=== PATIENT | male | born 1970 | race Two or more races ===

== ENCOUNTER 2020-07-28 22:50 | Inpatient (IN) | payer OTHER ==
[~2020-07-28] VITALS: Ht 167.6 cm; Wt 76.7 kg
[2020-07-28 23:00] VITALS: BP 110/52
--- NOTE | 2020-07-28 23:04 | Emergency Room Report ---
History of Present Illness General Chief Complaint: Chest Pain Source: Patient Present Illness HPI Is a 50-year-old male with a history of A. fib and sick sinus syndrome. He is currently taking atenolol and has a pacemaker. He presents with complaint of palpitation and chest pain. Onset was acute and occurred around 8:00 PM. Patient said that his heart rate was beating fast and hard. He also developed some chest pressure and pain. Pain radiates to the neck and back of the head. No shortness of breath. No nausea no vomiting. Pain is 7 out of 10. Nothing made it better. Nothing made it worse. He said that his A. fib is usually well controlled. He took his aspirin today and EMS gave him aspirin also. 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 Patient History Past Medical History: see triage record, old chart reviewed, DM, AFib Past Surgical History: pacemaker Pertinent Family History: none Social History: Denies: smoking Immunizations: other Reviewed Nursing Documentation: PMH: Agreed; PSxH: Agreed Nursing Documentation-PMH Hx Cardiac Problems: Yes - afib Hx Hypertension: Yes Hx Pacemaker: Yes Hx Diabetes: Yes Review of Systems Eye: Denies: eye pain, blurred vision ENT: Denies: ear pain, nose congestion, throat swelling Respiratory: Denies: cough, shortness of breath Cardiovascular: Reports: chest pain, palpitations Gastrointestinal: Denies: abdominal pain, diarrhea, nausea, vomiting Musculoskeletal: Denies: back pain, joint pain Skin: Denies: rash Neurological: Denies: headache, numbness Endocrine: Denies: increased thirst, increased urine Hematologic/Lymphatic: Denies: easy bruising All Other Systems: negative except mentioned in HPI Physical Exam Vital Signs Date Time Temp Pulse Resp B/P (MAP) Pulse Ox O2 Delivery O2 Flow Rate FiO2 07/28/20 22:50 98.4 175 20 110/52 (71) 98 Room Air Vitals with tachycardia Sp02 EP Interpretation: reviewed, normal General Appearance: well appearing, no apparent distress, alert Head: normocephalic, atraumatic Eyes: bilateral eye PERRL, bilateral eye EOMI ENT: hearing grossly normal, normal pharynx Neck: full range of motion, supple, no meningismus Respiratory: chest non-tender, lungs clear, normal breath sounds Cardiovascular #1: no murmur, tachycardia, irregularly irregular Gastrointestinal: normal bowel sounds, non tender, no mass, no organomegaly, no bruit, non-distended Musculoskeletal: back normal, normal range of motion, gait/station normal Psychiatric: mood/affect normal Procedures Critical Care Time Critical Care Time Critical care is mandated in this patient who presented with rapid A. fib with very fast ventricular rate. Patient require my urgent intervention to attenuate the risks of metabolic collapse which may lead to cardiovascular collapse and . Critical care time is 35 minutes excluding any reportable procedure. Critical care time included evaluation, multiple reevaluation, looking at old charts, interpreting laboratory and diagnostic data, discussing case with patient and family and consultants, and charting. Medical Decision Making Diagnostic Impression: Primary Impression: Rapid atrial fibrillation Additional Impression: Chest pain Qualified Codes: R07.9 - Chest pain, unspecified ER Course Presents with rapid atrial fibrillation. Rate is controlled but still in A. fib. Troponin is intermediate. I contacted Dr. Miranda for admission. EKG Diagnostic Results Troponin ordered: Yes Rate: tachycardiac Rhythm: other - afib with rvr ST Segments: other - NSST changes Other Impression Repeat EKG: afib with rate 89; occasional ventricular paced complexes. ASA given to the pt in ED: No Chest X-Ray Diagnostic Results Chest X-Ray Diagnostic Results : Chest X-Ray Ordered: Yes # of Views/Limited/Complete: 1 View Indication: Chest Pain EP Interpretation: Yes Interpretation: no consolidation, no effusion, no pneumothorax, no acute cardiopulmonary disease, other - pacemaker Impression: No acute disease Electronically Signed by: Guilherme Kim MD Last Vital Signs Date Time Temp Pulse Resp B/P (MAP) Pulse Ox O2 Delivery O2 Flow Rate FiO2 07/28/20 22:50 98.4 175 20 110/52 (71) 98 Room Air Status: improved Disposition: ADMITTED INPATIENT Condition: Serious Guilherme Kim MD Jul 28, 2020 23:04
[2020-07-28] MEDS: Aspirin Baby 81mg ORAL ONE ×2 (23:08→23:18)
[2020-07-28] MEDS ORDERED: dilTIAZem HCl 25mg/5ml Inj IVP ONE (23:15)
[2020-07-28 23:16] LABS: EOSINOPHILS % (AUTO) 1.5 % (0.0-3.0); HEMATOCRIT 51.6 % (42.0-52.0); HEMOGLOBIN 17.3 G/DL (14.2-18.0); LYMPHOCYTES % (AUTO) 35.7 % (20.0-45.0); MEAN CORPUSCULAR VOLUME 86 FL (80-99); MONOCYTES % (AUTO) 8.5 % (1.0-10.0); NEUTROPHILS % (AUTO) 53.2 % (45.0-75.0); PLATELET COUNT 246 K/UL (150-450); RED BLOOD COUNT 5.99 M/UL (4.70-6.10); RED CELL DISTRIBUTION WIDTH 12.8 % (11.6-14.8); WHITE BLOOD COUNT 9.6 K/UL (4.8-10.8)
[2020-07-28 23:17] LABS: APPEARANCE,URINE CLEAR; BILIRUBIN, URINE NEGATIVE (NEGATIVE); COLOR,URINE PALE YELLOW; GLUCOSE, URINE (UA) 1+ (NEGATIVE); KETONES,URINE NEGATIVE (NEGATIVE); LEUKOCYTE ESTERASE ,URINE NEGATIVE (NEGATIVE); NITRITE,URINE NEGATIVE (NEGATIVE); PH,URINE 7 (4.5-8.0); PROTEIN,URINE 3+ (NEGATIVE); UROBILINOGEN,URINE NORMAL MG/DL (0.0-1.0)
[2020-07-28 23:28] LABS: CALCIUM 9.2 MG/DL (8.5-10.1); CREATININE 1.3 MG/DL (0.55-1.30); POTASSIUM 3.8 MMOL/L (3.5-5.1)
[2020-07-28 23:35] LABS: ALBUMIN 4.2 G/DL (3.4-5.0); ALBUMIN/GLOBULIN RATIO 0.9 (1.0-2.7); BILIRUBIN,TOTAL 0.3 MG/DL (0.2-1.0)
[2020-07-28 23:47] VITALS: BP 122/90
[2020-07-29] VITALS (7 sets, daily range): BP systolic 107–143; BP diastolic 53–97
[2020-07-29] MEDS ORDERED: METFORMIN HCL500 M1 ORAL (00:53)
[2020-07-29] MEDS ORDERED: ATENOLOL25 MG ORAL (00:53)
[2020-07-29] MEDS ORDERED: ADVAIR 250-501 EACH INH (01:40)
[2020-07-29] MEDS ORDERED: ASPIRIN81 MG ORAL (01:40)
[2020-07-29 05:29] LABS: BASOPHILS % (AUTO) 0.7 % (0.0-2.0); EOSINOPHILS % (AUTO) 1.2 % (0.0-3.0); HEMATOCRIT 55.6 % (42.0-52.0); HEMOGLOBIN 17.9 G/DL (14.2-18.0); LYMPHOCYTES % (AUTO) 25.5 % (20.0-45.0); MEAN CORPUSCULAR VOLUME 89 FL (80-99); MONOCYTES % (AUTO) 6.4 % (1.0-10.0); NEUTROPHILS % (AUTO) 66.2 % (45.0-75.0); PLATELET COUNT 256 K/UL (150-450); RED BLOOD COUNT 6.22 M/UL (4.70-6.10); RED CELL DISTRIBUTION WIDTH 13.1 % (11.6-14.8); WHITE BLOOD COUNT 9.6 K/UL (4.8-10.8)
[2020-07-29] MEDS: metFORMIN 500mg tab ORAL SCH ×2 (05:50→12:21)
[2020-07-29 06:08] LABS: ANION GAP 8 mmol/L (5-15); BLOOD UREA NITROGEN 16 mg/dL (7-18); CALCIUM 9.3 MG/DL (8.5-10.1); CARBON DIOXIDE 30 MMOL/L (21-32); CHLORIDE 102 MMOL/L (98-107); CREATININE 1.1 MG/DL (0.55-1.30); POTASSIUM 3.8 MMOL/L (3.5-5.1); SODIUM 140 MMOL/L (136-145)
[2020-07-29] MEDS ORDERED: Atenolol 25mg tab ORAL SCH (09:00)
[2020-07-29] MEDS ORDERED: Aspirin Baby 81mg ORAL SCH (09:00)
--- NOTE | 2020-07-29 09:20 | History and Physical ---
Christiansen Dorene BUSINESS PERFORMANCE SPECIALIST 07/29/20 0919: History of Present Illness General Date patient seen: Jul 29, 2020 Time patient seen: 08:00 Reason for Hospitalization: Chest Pain, A fib with RVR Present Illness HPI 50 years old male with PMH of HTN , paroxysmal A fib, SSS, s/p PPM , asthma, prediabetes ( on metformin), presented to ED with c/o palpitations and chest pain. Onset was acute . Patient reported fast and hard heart beating. He also developed chest pressure associated pain, which radiated to his neck and back of his head. Pain reported at 7 out of 10 No associated shortness of breath. No nausea and vomiting. Per patient, his A fib is well controlled . In the past he apparently had an ablation /"shock" , as per patient. He is not on any a/coagulation, but is taking ASA and beta chantel. Patient also had pacemaker inserted in 2014 . He f/up as OP at [facility], last interrogation few weeks ago, and was normal according to the patient. He took aspirin earlier and also received aspirin by paramedics . Upon evaluation heart rate was 175 , blood pressure was stable. Pulse oximetry was stable on room air. ECC m revealed atrial fibrillation with RVR Chest x-ray revealed evidence of pacemaker , no acute cardiopulmonary pathology. Laboratory work-up revealed stable hemoglobin and hematocrit. No leukocytosis. Stable electrolytes and renal parameters. Glucose 193 Troponin 0.046 Urinalysis revealed +3 protein , no evidence of urinary tract infection. In emergency department patient received Cardizem bolus , heart rate stabilized , and patient subsequently was transferred to telemetry floor for further management Allergies: Coded Allergies: No Known Allergies (Unverified , 07/28/20) COVID-19 Screening Contact w/high risk pt: No Experienced COVID-19 symptoms?: No Medication History Scheduled Atenolol* (Tenormin*), 25 MG ORAL DAILY, (Reported) Fluticasone/Salmeterol (Advair 250-50 Diskus), 1 PUFF INH EVERY 12 HOURS, (Reported) Metformin Hcl* (Metformin Hcl*), 500 MG ORAL TWICE A DAY, (Reported) Scheduled PRN Aspirin* (Aspirin*), 81 MG ORAL DAILY PRN for CVA PPX, (Reported) Patient History Healthcare decision maker Resuscitation status Full code Advanced Directive on File Review of Systems Constitutional: Reports: no symptoms Eye: Reports: no symptoms ENT: Reports: no symptoms Respiratory: Reports: other - hx of asthma, well controlled with Advair and Albuterol prn Cardiovascular: Reports: see HPI Gastrointestinal: Reports: no symptoms Genitourinary: Reports: no symptoms Musculoskeletal: Reports: no symptoms Skin: Reports: no symptoms Psychiatric: Reports: no symptoms Neurological: Reports: no symptoms Endocrine: Reports: no symptoms Hematologic/Lymphatic: Reports: no symptoms Physical Exam General Appearance: WD/WN, no apparent distress, alert Lines, tubes and drains: peripheral HEENT: normocephalic, atraumatic, anicteric, mucous membranes moist Neck: non-tender, supple Respiratory/Chest: chest wall non-tender, lungs clear, no respiratory distress, no accessory muscle use Cardiovascular/Chest: normal peripheral pulses, normal rate - SR, occasional low ST Abdomen: normal bowel sounds, non tender, soft Extremities: normal range of motion, no calf tenderness, normal capillary refill Skin Exam: warm/dry 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, no motor/sensory deficits, alert, oriented x 3 Musculoskeletal: normal muscle bulk Last 24 Hour Vital Signs Date Time Temp Pulse Resp B/P (MAP) Pulse Ox O2 Delivery O2 Flow Rate FiO2 07/29/20 08:47 90 140/74 07/29/20 04:00 99 07/29/20 04:00 97.0 94 18 107/53 (71) 98 07/29/20 02:00 97 07/29/20 01:52 Room Air 07/29/20 01:15 97.5 108 18 138/93 (108) 100 07/29/20 00:57 78 16 125/67 100 Room Air 07/29/20 00:57 86 16 123/67 100 Room Air 07/28/20 23:47 98.4 79 17 122/90 98 Room Air 07/28/20 23:08 87 140/114 07/28/20 23:00 98.4 175 20 110/52 98 Room Air 07/28/20 23:00 175 20 Room Air 07/28/20 22:50 98.4 175 20 110/52 (71) 98 Room Air Intake and Output 07/28/20 07/29/20 19:00 07:00 Intake Total 240 ml Balance 240 ml Intake Oral 240 ml # Voids 2 Laboratory Tests Test 07/28/20 23:00 07/29/20 04:47 White Blood Count 9.6 K/UL (4.8-10.8) 9.6 K/UL (4.8-10.8) Red Blood Count 5.99 M/UL (4.70-6.10) 6.22 M/UL (4.70-6.10) H Hemoglobin 17.3 G/DL (14.2-18.0) 17.9 G/DL (14.2-18.0) Hematocrit 51.6 % (42.0-52.0) 55.6 % (42.0-52.0) H Mean Corpuscular Volume 86 FL (80-99) 89 FL (80-99) Mean Corpuscular Hemoglobin 28.9 PG (27.0-31.0) 28.8 PG (27.0-31.0) Mean Corpuscular Hemoglobin Concent 33.6 G/DL (32.0-36.0) 32.3 G/DL (32.0-36.0) Red Cell Distribution Width 12.8 % (11.6-14.8) 13.1 % (11.6-14.8) Platelet Count 246 K/UL (150-450) 256 K/UL (150-450) Mean Platelet Volume 7.2 FL (6.5-10.1) 6.8 FL (6.5-10.1) Neutrophils (%) (Auto) 53.2 % (45.0-75.0) 66.2 % (45.0-75.0) Lymphocytes (%) (Auto) 35.7 % (20.0-45.0) 25.5 % (20.0-45.0) Monocytes (%) (Auto) 8.5 % (1.0-10.0) 6.4 % (1.0-10.0) Eosinophils (%) (Auto) 1.5 % (0.0-3.0) 1.2 % (0.0-3.0) Basophils (%) (Auto) 1.0 % (0.0-2.0) 0.7 % (0.0-2.0) Urine Color Pale yellow Urine Appearance Clear Urine pH 7 (4.5-8.0) Urine Specific [place] 1.005 (1.005-1.035) Urine Protein 3+ (NEGATIVE) H Urine Glucose (UA) 1+ (NEGATIVE) H Urine Ketones Negative (NEGATIVE) Urine Blood 1+ (NEGATIVE) H Urine Nitrite Negative (NEGATIVE) Urine Bilirubin Negative (NEGATIVE) Urine Urobilinogen Normal MG/DL (0.0-1.0) Urine Leukocyte Esterase Negative (NEGATIVE) Urine RBC 0-2 /HPF (0 - 0) H Urine WBC 0 /HPF (0 - 0) Urine Squamous Epithelial Cells None /LPF (NONE/OCC) Urine Bacteria None /HPF (NONE) Sodium Level 138 MMOL/L (136-145) 140 MMOL/L (136-145) Potassium Level 3.8 MMOL/L (3.5-5.1) 3.8 MMOL/L (3.5-5.1) Chloride Level 100 MMOL/L (98-107) 102 MMOL/L (98-107) Carbon Dioxide Level 30 MMOL/L (21-32) 30 MMOL/L (21-32) Anion Gap 8 mmol/L (5-15) 8 mmol/L (5-15) Blood Urea Nitrogen 16 mg/dL (7-18) 16 mg/dL (7-18) Creatinine 1.3 MG/DL (0.55-1.30) 1.1 MG/DL (0.55-1.30) Estimat Glomerular Filtration Rate 58.2 mL/min (>60) > 60 mL/min (>60) Glucose Level 193 MG/DL (74-106) H 135 MG/DL (74-106) H Calcium Level 9.2 MG/DL (8.5-10.1) 9.3 MG/DL (8.5-10.1) Total Bilirubin 0.3 MG/DL (0.2-1.0) Aspartate Amino Transf (AST/SGOT) 16 U/L (15-37) Alanine Aminotransferase (ALT/SGPT) 42 U/L (12-78) Alkaline Phosphatase 92 U/L (46-116) Troponin I 0.046 ng/mL (0.000-0.056) Total Protein 8.7 G/DL (6.4-8.2) H Albumin 4.2 G/DL (3.4-5.0) Globulin 4.5 g/dL Albumin/Globulin Ratio 0.9 (1.0-2.7) L Thyroid Stimulating Hormone (TSH) 1.716 uiU/mL (0.358-3.740) Height (Feet): 5 Height (Inches): 6.00 Weight (Pounds): 169 Medications Current Medications Medications (Trade) Dose Ordered Sig/Noemy Route PRN Reason Start Time Stop Time Status Last Admin Dose Admin Acetaminophen (Tylenol) 650 mg Q6H PRN ORAL Mild Pain (Pain Scale 1-3) 07/29/20 01:30 08/28/20 01:29 Aspirin (ASA) 81 mg DAILY ORAL 07/29/20 09:00 09/12/20 08:59 07/29/20 08:47 Atenolol (Tenormin) 25 mg DAILY ORAL 07/29/20 09:00 08/28/20 08:59 07/29/20 08:47 Metformin HCl (Glucophage) 500 mg BIDBL ORAL 07/29/20 06:30 08/28/20 06:29 07/29/20 05:50 Ondansetron HCl (Zofran) 4 mg Q6H PRN IVP Nausea & Vomiting 07/29/20 01:30 08/28/20 01:29 Salmeterol Xinafoate/ Fluticasone (Advair 250/50 Diskus) 1 puffs BID INH 07/29/20 09:00 10/27/20 08:59 Assessment/Plan Assessment/Plan: ASSESSMENT A fib with RVR PAF Chest pain, likely due to A fib with RVR SSS, s/p PPM HTN Pre- DM ? diabetes Asthma PLAN OF CARE tele repeat troponin continue BB and ASA ECG ECHO cardio eval consider a/c given hx of DM BP management with current regimen/ BB BS management, continue Metformin, check HgA1c O2 prn keep sat > 90% continue Advair O2 prn keep sat > 90, remains stable on RA, case discussed and evaluated by supervising physician Hunter Miranda MD 07/29/20 1253: History of Present Illness General Reason for Hospitalization: Chest Pain, A fib with RVR Present Illness Allergies: Coded Allergies: No Known Allergies (Unverified , 07/28/20) Medication History Scheduled Atenolol* (Tenormin*), 25 MG ORAL DAILY, (Reported) Fluticasone/Salmeterol (Advair 250-50 Diskus), 1 PUFF INH EVERY 12 HOURS, (Reported) Metformin Hcl* (Metformin Hcl*), 500 MG ORAL TWICE A DAY, (Reported) Scheduled PRN Aspirin* (Aspirin*), 81 MG ORAL DAILY PRN for CVA PPX, (Reported) Dorene Christiansen NP Jul 29, 2020 09:19 Hunter Miranda MD Jul 29, 2020 12:53
--- NOTE | 2020-07-29 10:35 | Cardiac Electrophysiology PN ---
Subjective Subjective [id number] Objective Last 24 Hour Vital Signs Date Time Temp Pulse Resp B/P (MAP) Pulse Ox O2 Delivery O2 Flow Rate FiO2 07/29/20 09:00 Room Air 07/29/20 08:47 90 140/74 07/29/20 08:00 97.6 90 20 140/74 (96) 100 07/29/20 08:00 103 07/29/20 04:00 99 07/29/20 04:00 97.0 94 18 107/53 (71) 98 07/29/20 02:00 97 07/29/20 01:52 Room Air 07/29/20 01:15 97.5 108 18 138/93 (108) 100 07/29/20 00:57 78 16 125/67 100 Room Air 07/29/20 00:57 86 16 123/67 100 Room Air 07/28/20 23:47 98.4 79 17 122/90 98 Room Air 07/28/20 23:08 87 140/114 07/28/20 23:00 98.4 175 20 110/52 98 Room Air 07/28/20 23:00 175 20 Room Air 07/28/20 22:50 98.4 175 20 110/52 (71) 98 Room Air Intake and Output 07/28/20 07/29/20 19:00 07:00 Intake Total 240 ml Balance 240 ml Intake Oral 240 ml # Voids 2 Laboratory Tests Test 07/28/20 23:00 07/29/20 04:47 White Blood Count 9.6 K/UL (4.8-10.8) 9.6 K/UL (4.8-10.8) Red Blood Count 5.99 M/UL (4.70-6.10) 6.22 M/UL (4.70-6.10) H Hemoglobin 17.3 G/DL (14.2-18.0) 17.9 G/DL (14.2-18.0) Hematocrit 51.6 % (42.0-52.0) 55.6 % (42.0-52.0) H Mean Corpuscular Volume 86 FL (80-99) 89 FL (80-99) Mean Corpuscular Hemoglobin 28.9 PG (27.0-31.0) 28.8 PG (27.0-31.0) Mean Corpuscular Hemoglobin Concent 33.6 G/DL (32.0-36.0) 32.3 G/DL (32.0-36.0) Red Cell Distribution Width 12.8 % (11.6-14.8) 13.1 % (11.6-14.8) Platelet Count 246 K/UL (150-450) 256 K/UL (150-450) Mean Platelet Volume 7.2 FL (6.5-10.1) 6.8 FL (6.5-10.1) Neutrophils (%) (Auto) 53.2 % (45.0-75.0) 66.2 % (45.0-75.0) Lymphocytes (%) (Auto) 35.7 % (20.0-45.0) 25.5 % (20.0-45.0) Monocytes (%) (Auto) 8.5 % (1.0-10.0) 6.4 % (1.0-10.0) Eosinophils (%) (Auto) 1.5 % (0.0-3.0) 1.2 % (0.0-3.0) Basophils (%) (Auto) 1.0 % (0.0-2.0) 0.7 % (0.0-2.0) Urine Color Pale yellow Urine Appearance Clear Urine pH 7 (4.5-8.0) Urine Specific [place] 1.005 (1.005-1.035) Urine Protein 3+ (NEGATIVE) H Urine Glucose (UA) 1+ (NEGATIVE) H Urine Ketones Negative (NEGATIVE) Urine Blood 1+ (NEGATIVE) H Urine Nitrite Negative (NEGATIVE) Urine Bilirubin Negative (NEGATIVE) Urine Urobilinogen Normal MG/DL (0.0-1.0) Urine Leukocyte Esterase Negative (NEGATIVE) Urine RBC 0-2 /HPF (0 - 0) H Urine WBC 0 /HPF (0 - 0) Urine Squamous Epithelial Cells None /LPF (NONE/OCC) Urine Bacteria None /HPF (NONE) Sodium Level 138 MMOL/L (136-145) 140 MMOL/L (136-145) Potassium Level 3.8 MMOL/L (3.5-5.1) 3.8 MMOL/L (3.5-5.1) Chloride Level 100 MMOL/L (98-107) 102 MMOL/L (98-107) Carbon Dioxide Level 30 MMOL/L (21-32) 30 MMOL/L (21-32) Anion Gap 8 mmol/L (5-15) 8 mmol/L (5-15) Blood Urea Nitrogen 16 mg/dL (7-18) 16 mg/dL (7-18) Creatinine 1.3 MG/DL (0.55-1.30) 1.1 MG/DL (0.55-1.30) Estimat Glomerular Filtration Rate 58.2 mL/min (>60) > 60 mL/min (>60) Glucose Level 193 MG/DL (74-106) H 135 MG/DL (74-106) H Calcium Level 9.2 MG/DL (8.5-10.1) 9.3 MG/DL (8.5-10.1) Total Bilirubin 0.3 MG/DL (0.2-1.0) Aspartate Amino Transf (AST/SGOT) 16 U/L (15-37) Alanine Aminotransferase (ALT/SGPT) 42 U/L (12-78) Alkaline Phosphatase 92 U/L (46-116) Troponin I 0.046 ng/mL (0.000-0.056) Pending Total Protein 8.7 G/DL (6.4-8.2) H Albumin 4.2 G/DL (3.4-5.0) Globulin 4.5 g/dL Albumin/Globulin Ratio 0.9 (1.0-2.7) L Hemoglobin A1c Pending Thyroid Stimulating Hormone (TSH) 1.716 uiU/mL (0.358-3.740) Fausto Edward MD Jul 29, 2020 10:35
[2020-07-29] MEDS: Atenolol 25mg tab ORAL SCH ×2 (12:22→17:21)
[2020-07-29] MEDS: Wixela 250/50 Inhaler - 60 dose INH SCH ×2 (14:02→17:21)
--- NOTE | 2020-07-29 14:52 | Diagnostic Imaging Report ---
Indication: Chest pain Technique: One view of the chest Comparison: none Findings: Lungs pleural spaces are clear. The heart size is normal. Left chest pacemaker is noted. Impression: No acute process
--- NOTE | 2020-07-29 16:30 | Consultation ---
DATE OF CONSULTATION: 07/29/2020 CARDIOLOGY CONSULTATION CONSULTING PHYSICIAN: Fausto Edward MD REFERRING PHYSICIAN: Hunter Miranda MD REASON FOR CONSULTATION: Atrial fibrillation with rapid ventricular response. HISTORY OF PRESENT ILLNESS: The patient is a 50-year-old gentleman with history of hypertension and paroxysmal atrial fibrillation as well as history of sick sinus syndrome, who underwent a Biotronik pacemaker implantation at [facility] in 2014. The patient also has diabetes and has been on atenolol and aspirin. The patient also has asthma, presented to emergency room with palpitation. The patient also had chest pain apparently of 7/10 and was found to be in atrial fibrillation with rapid ventricular response. The patient apparently had a cardioversion in 2014 and he had pacemaker placement as well. The patient's EKG showed atrial fibrillation with rapid ventricular response. The patient was admitted and a Cardiology consultation was obtained for further evaluation and management. REVIEW OF SYSTEMS: Negative other than what is mentioned in the history of present illness. PAST MEDICAL HISTORY: As mentioned above. FAMILY HISTORY: Noncontributory. SOCIAL HISTORY: He lives at home. Does not smoke or drink alcohol. PHYSICAL EXAMINATION: VITAL SIGNS: Show blood pressure of 140/74, pulse 90, respirations 18, and temperature 97.6. HEAD AND NECK: Showed no JVD. LUNGS: Clear. CARDIOVASCULAR: Shows regular S1 and S2 with no gallop. Pacemaker is in left subclavian. ABDOMEN: Soft. EXTREMITIES: No pitting edema. LABORATORY AND DIAGNOSTIC DATA: His labs show white count of 9.6, hemoglobin of 17.9, hematocrit of 55.6. Sodium 140, potassium 3.8, BUN 16, creatinine 1.1. First troponin is negative. ASSESSMENT AND PLAN: 1. Chest pain. This is due to atrial fibrillation with rapid ventricular response with heart rate of 175 on 12-lead EKG. The patient's first troponin is negative. We will completely rule out CO protocol and get an echocardiogram to evaluate for ejection fraction and wall motion abnormality. 2. Atrial fibrillation with rapid ventricular response. The patient already converted to sinus rhythm. He is only on atenolol 25 mg daily; I will increase it to 25 mg b.i.d. In view of paroxysmal atrial fibrillation, he may benefit from antiarrhythmic therapy and also in view of diabetes, the patient will benefit from long-term anticoagulation to prevent ischemic stroke. I will discontinue aspirin and start the patient on Eliquis 5 mg b.i.d., and he likely will benefit from either amiodarone or flecainide depending on the review of the stress test, but the patient denies any prior myocardial infarction or coronary artery disease or congestive heart failure. I would await the result of the echocardiogram at this point. 3. Status post Biotronik pacemaker implantation. It was implanted by Dr. Trejo in 2014. He has been usually checked annually. Thank you very much for allowing me to participate in the care of this patient. Please do not hesitate to contact me for any questions regarding my evaluation. Fausto Edward M.D. DR: Jonas JOB#: [id number] CC:
[2020-07-29] MEDS: Eliquis 5mg tablet ORAL SCH (17:21)
[2020-07-30] VITALS: BP 128/76
[2020-07-30 04:00] VITALS: BP 117/60
[2020-07-30 05:02] LABS: BASOPHILS % (AUTO) 0.8 % (0.0-2.0); EOSINOPHILS % (AUTO) 1.6 % (0.0-3.0); HEMATOCRIT 48.8 % (42.0-52.0); HEMOGLOBIN 16.1 G/DL (14.2-18.0); LYMPHOCYTES % (AUTO) 27.4 % (20.0-45.0); MEAN CORPUSCULAR VOLUME 89 FL (80-99); MONOCYTES % (AUTO) 6.1 % (1.0-10.0); PLATELET COUNT 213 K/UL (150-450); RED BLOOD COUNT 5.48 M/UL (4.70-6.10); RED CELL DISTRIBUTION WIDTH 12.8 % (11.6-14.8); WHITE BLOOD COUNT 10.5 K/UL (4.8-10.8)
[2020-07-30 05:37] LABS: ANION GAP 9 mmol/L (5-15); BLOOD UREA NITROGEN 18 mg/dL (7-18); CALCIUM 8.8 MG/DL (8.5-10.1); CARBON DIOXIDE 27 MMOL/L (21-32); CHLORIDE 103 MMOL/L (98-107); CREATININE 1.1 MG/DL (0.55-1.30); SODIUM 139 MMOL/L (136-145)
[2020-07-30] MEDS: metFORMIN 500mg tab ORAL SCH ×2 (06:12→12:27)
[2020-07-30 08:00] VITALS: BP 128/92
[2020-07-30] MEDS: Wixela 250/50 Inhaler - 60 dose INH SCH (09:10)
[2020-07-30] MEDS: Atenolol 25mg tab ORAL SCH (09:10)
[2020-07-30] MEDS: Eliquis 5mg tablet ORAL SCH (09:10)
--- NOTE | 2020-07-30 10:08 | Pulmonology Progress Note ---
Subjective Allergies: Coded Allergies: No Known Allergies (Unverified , 07/28/20) Subjective denies CP, SOB, dizziness remains in SR on tele started on novel a/c seen by cardio Objective Last 24 Hour Vital Signs Date Time Temp Pulse Resp B/P (MAP) Pulse Ox O2 Delivery O2 Flow Rate FiO2 07/30/20 09:10 90 128/92 07/30/20 08:00 90 07/30/20 08:00 96.8 85 16 128/92 (104) 97 07/30/20 04:00 98.1 72 16 117/60 (79) 99 07/30/20 04:00 68 07/30/20 00:00 97.8 78 18 128/76 (93) 100 07/30/20 00:00 78 07/29/20 21:00 Room Air 07/29/20 20:00 97.0 72 18 134/97 (109) 97 07/29/20 20:00 80 07/29/20 19:01 Room Air 21 07/29/20 19:00 Room Air 21 07/29/20 17:21 77 126/73 07/29/20 16:00 80 07/29/20 16:00 97.8 77 20 126/73 (90) 98 07/29/20 14:02 Room Air 21 07/29/20 14:02 Room Air 21 07/29/20 12:22 74 143/87 07/29/20 12:00 103 07/29/20 12:00 98.8 74 17 143/87 (105) 98 Intake and Output 07/29/20 07/30/20 19:00 07:00 Intake Total 140 ml 720 ml Output Total 1200 ml Balance -1060 ml 720 ml Intake Oral 140 ml 720 ml Output Urine Total 1200 ml # Voids 3 3 Objective General Appearance: WD/WN, no apparent distress, alert Lines, tubes and drains: peripheral HEENT: normocephalic, atraumatic, anicteric, mucous membranes moist Neck: non-tender, supple Respiratory/Chest: chest wall non-tender, lungs clear, no respiratory distress, no accessory muscle use Cardiovascular/Chest: normal peripheral pulses, normal rate - SR, occasional low ST Abdomen: normal bowel sounds, non tender, soft Extremities: normal range of motion, no calf tenderness, normal capillary refill Skin Exam: warm/dry Neurologic: veneer stapler II-XII grossly normal, no motor/sensory deficits, alert, oriented x 3 Musculoskeletal: normal muscle bulk Laboratory Tests 07/29/20 11:30: Troponin I 0.005 07/29/20 19:10: Troponin I 0.012 07/30/20 03:00: Troponin I 0.000, White Blood Count 10.5, Red Blood Count 5.48, Hemoglobin 16.1, Hematocrit 48.8, Mean Corpuscular Volume 89, Mean Corpuscular Hemoglobin 29.4, Mean Corpuscular Hemoglobin Concent 33.0, Red Cell Distribution Width 12.8, Melvi telet Count 213, Mean Platelet Volume 7.1, Neutrophils (%) (Auto) 64.0, Lymphocytes (%) (Auto) 27.4, Monocytes (%) (Auto) 6.1, Eosinophils (%) (Auto) 1.6, Basophils (%) (Auto) 0.8, Sodium Level 139, Potassium Level 4.0, Chloride Level 103, Carbon Dioxide Level 27, Anion Gap 9, Blood Urea Nitrogen 18, Creatinine 1.1, Estimat Glomerular Filtration Rate > 60, Glucose Level 116H, Calcium Level 8.8, Thyroid Stimulating Hormone (TSH) 0.935, Free Thyroxine 0.93 Current Medications Medications (Trade) Dose Ordered Sig/Noemy Route PRN Reason Start Time Stop Time Status Last Admin Dose Admin Acetaminophen (Tylenol) 650 mg Q6H PRN ORAL Mild Pain (Pain Scale 1-3) 07/29/20 01:30 08/28/20 01:29 Apixaban (Eliquis) 5 mg BID ORAL 07/29/20 18:00 10/27/20 17:59 07/30/20 09:10 Atenolol (Tenormin) 25 mg BID ORAL 07/29/20 11:00 08/28/20 10:59 07/30/20 09:10 Metformin HCl (Glucophage) 500 mg BIDBL ORAL 07/29/20 06:30 08/28/20 06:29 07/30/20 06:12 Ondansetron HCl (Zofran) 4 mg Q6H PRN IVP Nausea & Vomiting 07/29/20 01:30 08/28/20 01:29 Salmeterol Xinafoate/ Fluticasone (Advair 250/50 Diskus) 1 puffs BID INH 07/29/20 09:00 10/27/20 08:59 07/30/20 09:10 Assessment/Plan Assessment/Plan A fib with RVR PAF Chest pain, likely due to A fib with RVR SSS, s/p PPM HTN Pre- DM ? diabetes Asthma PLAN OF CARE tele serial troponin NGT, ECG in SR, ruled out for acute MD continue BB and started on Eliquis ECHO with pEF thyroid panel stable cardio eval appreciated consider a/c given hx of DM BP management with current regimen/ BB , dose increased to bid BS management, continue Metformin, HgA1c- 6.3 diabetic diet and diabetic teaching O2 prn keep sat > 90% continue Advair O2 prn keep sat > 90, remains stable on RA, dc plan of cleared by cardio episode of A fib with RVR happened after stress induced reaction ( card accident) started on novel a/c - case discussed and evaluated by supervising physician Dorene Christiansen NP Jul 30, 2020 10:08 Hunter Miranda MD Jul 30, 2020 13:22
[2020-07-30] MEDS ORDERED: ATENOLOL25 MG ORAL (10:09)
[2020-07-30] MEDS ORDERED: ELIQUIS5 MG ORAL (10:09)
[2020-07-30 12:00] VITALS: BP 121/77
--- NOTE | 2020-07-30 12:58 | Cardiac Electrophysiology PN ---
Assessment/Plan Assessment/Plan 1. Chest pain. This is due to atrial fibrillation with rapid ventricular response with heart rate of 175 on 12-lead EKG. Ruled out CT EF 60% 2. Atrial fibrillation with rapid ventricular response. The patient already converted to sinus rhythm. He was only on atenolol 25 mg daily that I increased it to 25 mg b.i.d. In view of paroxysmal atrial fibrillation, he may benefit from antiarrhythmic therapy and also in view of diabetes, the patient will benefit from long-term anticoagulation to prevent ischemic stroke. I discontinued aspirin and start the patient on Eliquis 5 mg b.i.d., and he likely will benefit from either amiodarone or flecainide depending on the review of the stress test, but the patient denies any prior myocardial infarction or coronary artery disease or congestive heart failure. 3. Status post Biotronik pacemaker implantation. It was implanted by Dr. Trejo in 2014. He has been usually checked annually. Subjective Subjective In SR no CP or SOB. HR better Objective Last 24 Hour Vital Signs Date Time Temp Pulse Resp B/P (MAP) Pulse Ox O2 Delivery O2 Flow Rate FiO2 07/30/20 12:00 97.0 91 18 121/77 (92) 98 07/30/20 09:10 Room Air 07/30/20 09:10 90 128/92 07/30/20 09:10 Room Air 21 07/30/20 09:00 Room Air 07/30/20 08:00 90 07/30/20 08:00 96.8 85 16 128/92 (104) 97 07/30/20 04:00 98.1 72 16 117/60 (79) 99 07/30/20 04:00 68 07/30/20 00:00 97.8 78 18 128/76 (93) 100 07/30/20 00:00 78 07/29/20 21:00 Room Air 07/29/20 20:00 97.0 72 18 134/97 (109) 97 07/29/20 20:00 80 07/29/20 19:01 Room Air 21 07/29/20 19:00 Room Air 21 07/29/20 17:21 77 126/73 07/29/20 16:00 80 07/29/20 16:00 97.8 77 20 126/73 (90) 98 07/29/20 14:02 Room Air 21 07/29/20 14:02 Room Air 21 Intake and Output 07/29/20 07/30/20 19:00 07:00 Intake Total 140 ml 720 ml Output Total 1200 ml Balance -1060 ml 720 ml Intake Oral 140 ml 720 ml Output Urine Total 1200 ml # Voids 3 3 Laboratory Tests Test 07/29/20 19:10 07/30/20 03:00 Troponin I 0.012 ng/mL (0.000-0.056) 0.000 ng/mL (0.000-0.056) White Blood Count 10.5 K/UL (4.8-10.8) Red Blood Count 5.48 M/UL (4.70-6.10) Hemoglobin 16.1 G/DL (14.2-18.0) Hematocrit 48.8 % (42.0-52.0) Mean Corpuscular Volume 89 FL (80-99) Mean Corpuscular Hemoglobin 29.4 PG (27.0-31.0) Mean Corpuscular Hemoglobin Concent 33.0 G/DL (32.0-36.0) Red Cell Distribution Width 12.8 % (11.6-14.8) Platelet Count 213 K/UL (150-450) Mean Platelet Volume 7.1 FL (6.5-10.1) Neutrophils (%) (Auto) 64.0 % (45.0-75.0) Lymphocytes (%) (Auto) 27.4 % (20.0-45.0) Monocytes (%) (Auto) 6.1 % (1.0-10.0) Eosinophils (%) (Auto) 1.6 % (0.0-3.0) Basophils (%) (Auto) 0.8 % (0.0-2.0) Sodium Level 139 MMOL/L (136-145) Potassium Level 4.0 MMOL/L (3.5-5.1) Chloride Level 103 MMOL/L (98-107) Carbon Dioxide Level 27 MMOL/L (21-32) Anion Gap 9 mmol/L (5-15) Blood Urea Nitrogen 18 mg/dL (7-18) Creatinine 1.1 MG/DL (0.55-1.30) Estimat Glomerular Filtration Rate > 60 mL/min (>60) Glucose Level 116 MG/DL (74-106) H Calcium Level 8.8 MG/DL (8.5-10.1) Thyroid Stimulating Hormone (TSH) 0.935 uiU/mL (0.358-3.740) Free Thyroxine 0.93 NG/DL (0.76-1.46) Objective HEAD AND NECK: no JVD. LUNGS: Clear. CARDIOVASCULAR: regular S1 and S2 with no gallop. Pacemaker is in left subclavian. ABDOMEN: Soft. EXTREMITIES: No pitting edema. Fausto Edward MD Jul 30, 2020 12:58
--- NOTE | 2020-08-01 14:58 | Cardiology Report ---
APPROVED REPORT EKG Measurement Heart [id number] <Conclusion> Sinus rhythm with 1st degree AV block Nonspecific ST abnormality Abnormal ECG
--- NOTE | 2020-08-01 15:03 | Cardiology Report ---
APPROVED REPORT EKG Measurement Heart [id number] <Conclusion> Atrial fibrillation with frequent ventricular-paced complexes Abnormal ECG
--- NOTE | 2020-08-01 15:03 | Cardiology Report ---
APPROVED REPORT EKG Measurement Heart [id number] <Conclusion> Atrial fibrillation with rapid ventricular response Abnormal ECG
--- NOTE | 2020-08-02 10:05 | Cardiology Report ---
APPROVED REPORT EXAM: Two-dimensional and M-mode echocardiogram with Doppler and color Doppler. INDICATION Atrial Fibrillation M-Mode DIMENSIONS IVSd1.0 (0.7-1.1cm)Left Atrium (MM)4.0 (1.6-4.0cm) LVDd4.1 (3.5-5.6cm)Aortic Root2.9 (2.0-3.7cm) PWd1.1 (0.7-1.1cm)Aortic Cusp Exc.1.8 (1.5-2.0cm) IVSs1.4 cmEPSS0.5 (>1.0cm) LVDs2.9 (2.5-4.0cm) PWs1.5 cm Other Information Technically limited study due to poor acoustical windows. <Conclusion> Normal left ventricular chamber size, systolic function and wall motion. Left ventricular ejection fraction estimated to be 60 %. No evidence of left ventricular hypertrophy. No evidence of pericardial effusion. All other cardiac chamber sizes are within normal limits. Focal aortic valve sclerosis with adequate cusp excursion. Thickened mitral valve leaflets with normal excursion. Mitral annulus and aortic root calcification. Pulmonic valve not well visualized. Normal tricuspid valve structure. IVC at normal size with physiologic collapse. Pacemaker wire present in the right side chambers. A color flow and spectral Doppler study was performed and revealed: Trace aortic regurgitation. Trace mitral regurgitation. Mitral diastolic velocities suggest reduced left ventricular relaxation c/w mild LV diastolic dysfunction (Grade I ). Trace tricuspid regurgitation. Tricuspid systolic velocities suggests peak right ventricular systolic pressure of 24 mmHg. No pulmonic regurgitation present.
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
== END 2020-07-30 16:38 | disposition home or self-care (01) | DRG 310 ==
LOC: EDBD 22:50 → EMR 23:13 → 2E 07-29 00:19 → EDBEDREQ 07-29 00:33 → 2E 07-29 14:38
DX: I48.0 Paroxysmal atrial fibrillation (principal); I10 Essential (primary) hypertension; J45.909 Unspecified asthma, uncomplicated; Z79.82 Long term (current) use of aspirin; Z79.84 Long term (current) use of oral hypoglycemic drugs; R07.9 Chest pain, unspecified; Z95.0 Presence of cardiac pacemaker; R73.03 Prediabetes
CPT/HCPCS: 36415; 71045; 80048; 80053; 81003; 83036; 84439; 84443; 84484; 85025; 93005; 93306; 94640; 96374; 99291